=== PATIENT | female | born 1950 | race Caucasian/White ===

== ENCOUNTER 2020-03-20 11:23 | Outpatient (REF) | payer MEDICARE, SELFPAY ==
--- NOTE | 2020-03-20 | MM_ITS ---
EXAMINATION: MM DIAGNOSTIC DIGITAL BREAST TOMOSYNTHESIS, RIGHT US DIAGNOSTIC ULTRASOUND BREAST, RIGHT CLINICAL INFORMATION: Intermittent pea-sized nodule noted by patient posterior 12:00 right breast. The lifetime risk of breast cancer based on the Tyrer-Cuzick Model is 5%. COMPARISON: Mammography: 11/30/2019, 07/29/2018, 07/22/2017 TECHNIQUE: Digital breast tomosynthesis is performed in both the craniocaudal and mediolateral oblique views along with computer-aided detection (CAD). Synthesized 2D images are generated from the tomosynthesis. Ultrasound right breast is targeted to the area of clinical concern posterior 12:00 right breast. Patient is able to point to the area of concern at time of imaging. Grayscale imaging and color Doppler are performed without and with harmonics. FINDINGS: There are scattered areas of fibroglandular density (ACR BI-RADS breast composition Category b). Parenchymal pattern is similar to prior studies. There is no interval mass or architectural abnormality or developing density. There is no mammographic finding at site of clinically palpable concern, noted with symptom marker. There are no abnormal calcifications. The skin contours are smooth. Ultrasound demonstrates no cystic or solid mass, architectural abnormality, or focal duct ectasia. No skin thickening or edema tracking in soft tissue planes. Results are discussed with the patient at time of visit. Patient should be managed based on the clinical impression. If clinically indicated, further evaluation may be considered with surgical consult. Decision to proceed with biopsy should be based on clinical grounds and degree of clinical concern. MM/MM tomosynthesis diagnostic RT IMPRESSION: 1. Mammography shows no significant changes from prior studies. 2. Unremarkable targeted right breast ultrasound. ASSESSMENT: BI-RADS 1: Negative RECOMMENDATION: 1. Patient should be managed based on the clinical impression. If clinically indicated, further evaluation may be considered with surgical consult. Decision to proceed with biopsy should be based on clinical grounds and degree of clinical concern. 2. Otherwise, routine annual screening mammography. This patient's information was entered into a reminder system with a target due date for their next mammogram.
== END 2020-03-20 11:24 | disposition home or self-care (01) ==
LOC: HO.MAMMO 11:23
PROVIDERS: Visit Provider Internal Medicine
DX: N63.15 Unspecified lump in the right breast, overlapping quadrants (principal)
CPT/HCPCS: 76642; 77061; 77065

== ENCOUNTER → 2020-04-30 11:03 | Outpatient (BNVA) | payer MEDICARE, SELFPAY | PROVIDERS: PCP Internal Medicine; Visit Provider Surgery | DX: N63.10 Unspecified lump in the right breast, unspecified quadrant (principal) | CPT/HCPCS: 99202 ==

== ENCOUNTER 2020-12-05 12:30 | Outpatient (REF) | payer MEDICARE, SELFPAY ==
--- NOTE | ~2020-12-05 | MM_ITS ---
EXAMINATION: MM SCREENING DIGITAL BREAST TOMOSYNTHESIS, BILATERAL CLINICAL INFORMATION: Screening. Asymptomatic. The lifetime risk of breast cancer based on the Tyrer-Cuzick Model is 5%. COMPARISON: Mammography: 03/20/2020, 11/30/2019, 07/29/2018, 07/22/2017 TECHNIQUE: Digital breast tomosynthesis is performed in both the craniocaudal and mediolateral oblique views along with computer-aided detection (CAD). Synthesized 2D images are generated from the tomosynthesis. FINDINGS: There are scattered areas of fibroglandular density (ACR BI-RADS breast composition Category b). There are no significant masses, abnormal calcifications, or other abnormalities. Parenchymal pattern is similar to prior studies. No developing density. The axilla and skin contours are unremarkable. MM/MM tomosynthesis screening BI IMPRESSION: No mammographic evidence of malignancy. ASSESSMENT: BI-RADS 1: Negative RECOMMENDATION: Routine annual mammography screening. This patient's information was entered into a reminder system with a target due date for their next mammogram.
== END 2020-12-05 12:31 | disposition home or self-care (01) ==
LOC: HO.MAMMO 12:30
PROVIDERS: PCP Internal Medicine; Visit Provider Internal Medicine
DX: Z12.31 Encounter for screening mammogram for malignant neoplasm of breast (principal)
CPT/HCPCS: 77063; 77067

== ENCOUNTER 2020-12-27 13:10 | Outpatient (REF) | payer MEDICARE, SELFPAY ==
--- NOTE | ~2020-12-27 | CT_ITS ---
EXAMINATION: CT CHEST SCREENING CLINICAL INFORMATION: Smoking history COMPARISON: Previous chest CT scans most recent December 2019 TECHNIQUE: Multidetector volumetric CT imaging of the chest is performed without contrast using low dose technique. Additional 2D coronal and sagittal reformatted images and axial 3D maximum intensity projection (MIP) images are generated on the CT workstation. This CT examination was performed using dose optimization techniques as appropriate, variously including the following: *Automated exposure control *Adjustment of mA and/or kV according to patient size (this includes techniques or standardized protocols for targeted exams where dose is matched to indication/reason for exam; i.e. extremities or head) *Use of iterative reconstruction technique DLP: 61 mGy-cm FINDINGS: LUNGS: There is biapical pleural and parenchymal scarring that is stable. There is a scarring or chronic subsegmental atelectasis in the lingula and right middle lobe. The lungs are otherwise clear. MEDIASTINUM: Mild coronary artery calcification. The mediastinum is otherwise normal. PLEURA: There is no pleural effusion. No pleural mass or thickening. AXILLA: No lymphadenopathy. UPPER ABDOMEN: The gallbladder has been removed. There is fatty infiltration of the pancreas. OSSEOUS STRUCTURES: There are degenerative changes of the spine. CT/CT lung screening IMPRESSION: Stable chest findings. ASSESSMENT: Lung-RADS category 2: Benign RECOMMENDATION: Annual low-dose chest CT follow-up recommended.
== END 2020-12-27 13:11 | disposition home or self-care (01) ==
LOC: HO.CT 13:10
PROVIDERS: Visit Provider Physician Assistant Medical
DX: Z12.2 Encounter for screening for malignant neoplasm of respiratory organs (principal); F17.210 Nicotine dependence, cigarettes, uncomplicated
CPT/HCPCS: 71271

== ENCOUNTER 2021-12-09 12:52 | Outpatient (REF) | payer MEDICARE, SELFPAY ==
--- NOTE | ~2021-12-09 | MM_ITS ---
EXAMINATION: MM SCREENING DIGITAL BREAST TOMOSYNTHESIS, BILATERAL CLINICAL INFORMATION: Screening. Asymptomatic. The lifetime risk of breast cancer based on the Tyrer-Cuzick Model is 4%. COMPARISON: Mammography: 12/05/2020, 03/20/2020, 11/30/2019, 07/29/2018 TECHNIQUE: Digital breast tomosynthesis is performed in both the craniocaudal and mediolateral oblique views along with computer-aided detection (CAD). Synthesized 2D images are generated from the tomosynthesis. FINDINGS: There are scattered areas of fibroglandular density (ACR BI-RADS breast composition Category b). There are no significant masses, abnormal calcifications, or other abnormalities. There is no developing density or architectural abnormality or significant changes from prior exams. MM/MM tomosynthesis screening BI IMPRESSION: No mammographic evidence of malignancy. ASSESSMENT: BI-RADS 1: Negative RECOMMENDATION: Routine annual mammography screening. This patient's information was entered into a reminder system with a target due date for their next mammogram.
== END 2021-12-09 12:53 | disposition home or self-care (01) ==
LOC: HO.MAMMO 12:52
PROVIDERS: PCP Internal Medicine; Visit Provider Internal Medicine
DX: Z12.31 Encounter for screening mammogram for malignant neoplasm of breast (principal)
CPT/HCPCS: 77063; 77067

== ENCOUNTER 2022-02-18 09:36 | Outpatient (REF) | payer MEDICARE, SELFPAY ==
--- NOTE | ~2022-02-18 | CT_ITS ---
EXAMINATION: CT CHEST SCREENING CLINICAL INFORMATION: History of nicotine dependence. COMPARISON: CT chest 12/27/2020. TECHNIQUE: Multidetector volumetric CT imaging of the chest is performed without contrast using low dose technique. Additional 2D coronal and sagittal reformatted images and axial 3D maximum intensity projection (MIP) images are generated on the CT workstation. This CT examination was performed using dose optimization techniques as appropriate, variously including the following: *Automated exposure control *Adjustment of mA and/or kV according to patient size (this includes techniques or standardized protocols for targeted exams where dose is matched to indication/reason for exam; i.e. extremities or head) *Use of iterative reconstruction technique DLP: 65 mGy-cm. FINDINGS: LUNGS: The lungs are well-expanded with patchy atelectatic changes in the lingula and right middle lobe. No focal nodule, mass or consolidation seen. MEDIASTINUM: Central trachea and bronchi are widely patent. The heart size and great vessels are normal caliber. There is trace coronary artery calcifications present. No pericardial effusion seen. No abnormal-sized mediastinal or hilar lymph nodes seen. CORONARY ARTERY CALCIFICATION: There is trace coronary artery calcification. PLEURA: There is no pleural effusion. No pleural mass or thickening. AXILLA: No lymphadenopathy. UPPER ABDOMEN: Visualized liver, spleen, pancreas and bilateral adrenal glands unremarkable. Gallbladder has been surgically removed. OSSEOUS STRUCTURES: There is exaggerated thoracic kyphosis. No aggressive lytic or sclerotic process seen. There is mild ventral spondylosis mid and lower dorsal spine. CT/CT lung screening IMPRESSION: Scarring as described above. No acute consolidation. No prior nodules mass seen. ASSESSMENT: Lung-RADS category 2: Benign. RECOMMENDATION: Low-dose annual CT chest follow-up.
== END 2022-02-18 09:37 | disposition home or self-care (01) ==
LOC: HO.CT 09:36
PROVIDERS: PCP Internal Medicine; Visit Provider Physician Assistant Medical
DX: Z12.2 Encounter for screening for malignant neoplasm of respiratory organs (principal); Z87.891 Personal history of nicotine dependence
CPT/HCPCS: 71271

== ENCOUNTER 2022-12-23 11:08 | Outpatient (REF) | payer MEDICARE, SELFPAY | END 2022-12-23 11:09 | disposition home or self-care (01) | LOC: HO.MAMMO 11:08 | PROVIDERS: PCP Internal Medicine; Visit Provider Internal Medicine | DX: Z12.31 Encounter for screening mammogram for malignant neoplasm of breast (principal) | CPT/HCPCS: 77063; 77067 ==

== ENCOUNTER → 2022-12-23 11:15 | Outpatient (BNV) | payer MEDICARE, SELFPAY | PROVIDERS: PCP Internal Medicine; Visit Provider Radiology Diagnostic Radiology | DX: Z12.31 Encounter for screening mammogram for malignant neoplasm of breast (principal) | CPT/HCPCS: 77063; 77067 ==

== ENCOUNTER 2023-04-22 10:56 | Outpatient (REF) | payer MEDICARE, SELFPAY ==
--- NOTE | ~2023-04-22 | CT_ITS ---
EXAMINATION: CT CHEST SCREENING CLINICAL INFORMATION: History of nicotine dependence. COMPARISON: CT chest 02/18/2022, 12/27/2020 and multiple prior dating back to 09/13/2017. TECHNIQUE: Multidetector volumetric CT imaging of the chest was performed without contrast using low-dose technique. Additional 2D coronal and sagittal reformatted images and axial 3D maximum intensity projection (MIP) images were generated on the CT workstation. This CT examination was performed using dose optimization techniques as appropriate, variously including the following: *Automated exposure control *Adjustment of mA and/or kV according to patient size (this includes techniques or standardized protocols for targeted exams where dose is matched to indication/reason for exam; i.e. extremities or head) *Use of iterative reconstruction technique DLP: 63 mGy-cm FINDINGS: LUNGS: Biapical pleural parenchymal scarring is unchanged. There is an unchanged 3 mm left upper lobe pulmonary nodule (5:156 compare prior 5:167). This is also unchanged dating back to the oldest 09/13/2017 study (prior 09/13/2017 4:152). No additional focal nodule, mass or consolidation seen. MEDIASTINUM: Unremarkable. No mediastinal or hilar lymphadenopathy. Heart size is normal. There is aortic calcification without evidence of aneurysm. CORONARY ARTERY CALCIFICATION: None visualized on this study. PLEURA: There is no pleural effusion. No pleural mass or thickening. AXILLA: No lymphadenopathy. UPPER ABDOMEN: Visualized liver, spleen, pancreas and bilateral adrenal glands unremarkable. Gallbladder has been surgically removed. OSSEOUS STRUCTURES: Again seen is a mild thoracic kyphosis and degenerative changes in the spine. No aggressive lytic or sclerotic process seen. CT/CT lung screening IMPRESSION: Stable 3 mm left upper lobe pulmonary nodule. ASSESSMENT: Lung-RADS category 2: Benign. RECOMMENDATION: Low-dose annual CT chest follow up.
== END 2023-04-22 10:57 | disposition home or self-care (01) ==
LOC: HO.CT 10:56
PROVIDERS: PCP Internal Medicine; Visit Provider Physician Assistant Medical
DX: Z12.2 Encounter for screening for malignant neoplasm of respiratory organs (principal); Z87.891 Personal history of nicotine dependence
CPT/HCPCS: 71271

== ENCOUNTER 2023-09-22 10:53 | Outpatient (REF) | payer MEDICARE, SELFPAY ==
--- NOTE | ~2023-09-22 | MM_ITS ---
EXAMINATION: BONE DENSITOMETRY CLINICAL INDICATION: Postmenopausal. Estrogen deficiency. COMPARISON: Baseline BD dated 09/10/2015. TECHNIQUE: Using a [employer] DXA System (software version: 13.1) manufactured by [employer], dual-energy x-ray absorptiometry was performed of the lumbar spine and left hip. The images are of good technical quality. Summary results are attached. FINDINGS: LEFT FEMUR, NECK: Current: BMD 0.883 g/cm2, Z-score 0.1, T-score -1.1, osteopenia. Baseline: BMD 0.870 g/cm2. LEFT FEMUR, TOTAL: Current: BMD 0.935 g/cm2, Z-score 0.4, T-score -0.6, normal, 0.9% increase from baseline (<5% change is not significant). Baseline: BMD 0.927 g/cm2. AP SPINE L1-L2 (excluding L3 and L4): The data of L1-L4 has been changed to exclude the L3 and L4 vertebral bodies, because degenerative sclerosis at these levels may cause overestimation of lumbar spine density. Current: BMD 1.163 g/cm2, Z-score 0.8, T-score 0.0, normal, 0.0% change from baseline (<5% change is not significant). Baseline: BMD 1.163 g/cm2. IDENTIFIED RISK FACTORS: Menopause, low calcium intake. HISTORY OF FRACTURE: None listed. MEDICATIONS: Vitamin D. MM/XR DEXA axial skeleton IMPRESSION: 1. DIAGNOSIS: Osteopenia based on the lowest T-score value of -1.1 in the femoral neck applying World Health Organization criteria. 2. 10-YEAR FRACTURE RISK PREDICTION, FRAX: Major osteoporotic fracture (clinical spine, forearm, hip or shoulder) 9.0%. Hip fracture 1.1%. 3. Treatment Recommendations: NOF guidelines recommend consideration for treatment in postmenopausal women and men age 50 and older presenting with the following: -A hip or vertebral (clinical or morphometric) fracture. -T-score less than or equal to -2.5 at the femoral neck or spine after appropriate evaluation to exclude secondary causes. -Low bone mass at the hip or spine and a 10-year fracture probability by FRAX of greater than or equal to 3% for hip fracture or greater than or equal to 20% for major osteoporotic fracture based on the [place] adapted WHO algorithm. 4. Other Recommendations: All treatment decisions require clinical judgment and consideration of individual patient factors, including patient preferences, comorbidities, previous drug use, risk factors not captured in the FRAX model (e.g. frailty, falls, vitamin D deficiency, increased bone turnover, interval significant decline in bone density) and possible under or overestimation of fracture risk by FRAX. Additional medical evaluation for secondary cause of low bone mineral density may be appropriate. FUTURE SCAN RECOMMENDATION: People with diagnosed cases of osteoporosis or at high risk for fracture should have regular bone mineral density tests. For patients eligible for Medicare, routine testing is allowed once every 2 years. The testing frequency can be increased to one year for patients who have rapidly progressing disease, those who are receiving or discontinuing medical therapy to restore bone mass, or have additional risk factors.
== END 2023-09-22 10:54 | disposition home or self-care (01) ==
LOC: HO.MAMMO 10:53
PROVIDERS: PCP Internal Medicine; Visit Provider Internal Medicine
DX: Z13.820 Encounter for screening for osteoporosis (principal); Z78.0 Asymptomatic menopausal state
CPT/HCPCS: 77080

== ENCOUNTER 2023-12-29 10:54 | Outpatient (REF) | payer MEDICARE, SELFPAY ==
--- NOTE | ~2023-12-29 | MM_ITS ---
EXAMINATION: MM SCREENING DIGITAL BREAST TOMOSYNTHESIS, BILATERAL CLINICAL INFORMATION: Screening. Asymptomatic. COMPARISON: Mammography: This study is compared with prior exams dating back to 2019. TECHNIQUE: Digital breast tomosynthesis is performed in both the craniocaudal and mediolateral oblique views along with computer-aided detection (CAD). Synthesized 2D images are generated from the tomosynthesis. FINDINGS: There are scattered areas of fibroglandular density (ACR BI-RADS breast composition Category b). There are no significant masses, abnormal calcifications, or other abnormalities. Few, bilateral benign calcifications are present. MM/MM tomosynthesis screening BI IMPRESSION: No mammographic evidence of malignancy. ASSESSMENT: BI-RADS BI-RADS 2 - Benign Findings RECOMMENDATION: Routine annual mammography screening. 1 year F/U This examination should not preclude the clinical evaluation of a suspicious palpable abnormality. This patient's information was entered into a reminder system with a target due date for their next mammogram. Electronically signed by: Dinora Bey MD 01/25/2024 12:21 PM EDT
== END 2023-12-29 10:55 | disposition home or self-care (01) ==
LOC: HO.MAMMO 10:54
PROVIDERS: PCP Internal Medicine; Visit Provider Internal Medicine
DX: Z12.31 Encounter for screening mammogram for malignant neoplasm of breast (principal)
CPT/HCPCS: 77063; 77067

== ENCOUNTER → 2023-12-29 11:00 | Outpatient (BNV) | payer MEDICARE, SELFPAY | PROVIDERS: PCP Internal Medicine; Visit Provider Radiology Diagnostic Radiology | DX: Z12.31 Encounter for screening mammogram for malignant neoplasm of breast (principal) | CPT/HCPCS: 77063; 77067 ==

== ENCOUNTER 2025-01-05 10:56 | Outpatient (REF) | payer MEDICARE, SELFPAY ==
--- OUTSIDE RECORDS SUMMARY | 2024-06-02 08:00 | XMS_ITS ---
Author Organization [facility] [address] [place] Address [address] [facility] [place] [address] Care Team Providers Care Explosive Operator Supervisor Name Role Phone Morgan Iyer MD Primary Care Provider Olga Krishnamurthy Unavailable [phone] Allergies Allergen (clinical drug ingredient) Drug/Non Drug Allergy documented on EMR Reaction Allergy Type Onset Date Status codeine Codeine rash Drug Allergy Active erythromycin Erythromycin Thrush Drug Allergy A ctive Penicillin rash Drug Allergy Active Shellfish (FN) Shellfish-derived Products nausea and vomiting Drug Allergy Active Substance with sulfonamide structure and antibacterial mechanism of action (substance) Sulfa Antibiotics Thrush, chills, nausea Drug Allergy Active Medications Medication SIG (Take, Route, Frequency, Duration) Notes Start Date End Date Status Omeprazole 20 MG 1 capsule 1/2 to 1 h our before morning meal Orally Once a day Active Metoprolol Succinate 25 MG 1 capsule Ora lly Once a day Active Tylenol 325 MG 1 tablet as needed O rally every 6 hrs Active Spironolactone 25 MG 1 tablet Orally Active Vitamin D3 Active metFORMIN HCl 500 MG 1 tablet with a leslee l Orally Once a day Active Aspirin 81 MG 1 tablet Orally Once a day Active amLODIPine Besylate 10 MG 1 tablet Orall y Once a day Active Losartan Potassium 50 MG 1 tablet Orally Once a day Active Atorvastatin Calcium 10 MG 1 tablet Oral ly Once a day Active Social History Tobacco Use: Social History Observation Description Date Details (start date - stop date) Former Smoker NA - NA Tobacco Control (Standard) Question Answer Notes Tobacco use: Former smoker Additional Findings: Tobacco non-user Current no nsmoker AUDIT-C (Standard) Question Answer Notes Did you have a drink containing alcohol in the p ast year? No Points 0 Interpretation Negative Encounters Encounter [facility] Date [facility] [place] [address] [address] 06/02/2024 Olga Fried Plan Of Treatment Next Appt Details Provider Name:Olga escalona, 03/23/2025 11:15:00 AM, [address] [facility], [place] [address], [place], [address], Progress Notes * Hien BLOOMDOB:1950 (74 yo F)Acc No.[id number]:06/02/2024 Progress Notes Patient: Hien PINK Provider: Yasmine Fried DPM :1950 A ge:74 Y S ex:Female Date:06/02/2024 Address:[address] [place], [place] [id number] Pcp:Morgan Iyer MD Subjective: * Chief Complaints: * * ROS: G eneral/Constitutional: Nausea d enies. V omiting d enies. H rafael Thirst d enies. L oss appetite d enies. C hills d enies. F atigue a dmits.?Fever d enies. N ight Sweats d enies. U nexplained weight loss d enies. U nexplained weight gain d enies. H EENTM: Dentures d enies. D izziness d enies. G lasses/contacts d enies. R etinopathy d enies. B lurred/double vision d enies. T MJ?denies. D ischarge/drainage d enies. I mplants d enies. S ore throat d enies. D ental implants d enies. H jignesh of hearing d enies. D ifficulty chewing/swallowing/speaking d enies. N ose bleeds d enies. S ore mouth d enies. ? R espiratory: On Oxygen d enies. P neumonia/pleurisy d enies.?Bronchitis d enies. E mphysema d enies. C oughing d enies. C ough blood?denies. S hortness of breath a dmits. W heezing d enies. C ardiovascular: Pacemaker d enies. M SUPER[employer] d enies. W PW d enies. C HF d enies. H eart attack d enies. S eptal defect d enies. R apid beat d enies. C hest pain d enies. A trial Fib. d enies. M urmur/Palpitations d enies. G astrointestinal: Hemorrhoids d enies. S tomach/Abdominal pain d enies. D ark blood stool d enies. I rritable bowel d enies. C onstipation a dmits. D iarrhea d enies. H ematology: Swelling d enies. C lots d enies. V aricose Veins d enies. B ruising d enies. B leeding problem d enies. G enitourinary: Blood urine d enies. F requent/Painfu/urination/bladder control d enies. K idney stones d enies. I nfection (UTI) d enies. N ephropathy d enies. s ex trans dis (STD) d enies. P rostate d enies. M usculoskeletal: Hammertoes a dmits. B unions a dmits. B ack Pain d enies. M uscle Cramps/ Resting d enies. M uscle cramps / walking d enies.?Generalized aches and pains a dmits. W eakness d enies. I nteg.: Carranza d enies. S cars d enies. C orns/calluses?admits. I ngrown nails d enies. P ainful nails a dmits. O pen Sores d enies. R ashes d enies. N eurologic: Difficulty sleeping d enies. B rain disorder d enies. N umbness d enies. B alance trouble d enies. C onfusion d enies. F ainting/blackouts d enies. T ingling d enies. T remors d enies. * Medical History: A nemia, Osteoarthritis, Back,Hip,and Knee pain, Chicken pox, Covid-19, Diabetes mellitus, Diverticulosis, Gall bladder problems, 2 Leaky Heart valves, High Blood Pressure, Measles, Mumps. * Surgical History: G all bladder removal 2008. * Family History: M other: , diagnosed with Other malignant neoplasm of unspecified site, Diabetic - NIDDM, Unspecified essential hypertension. F ather: , diagnosed with Diabetic - NIDDM, Unspecified essential hypertension. D aughter(s): diagnosed with Diabetic - NIDDM. M aternal aunt: diagnosed with Diabetic - NIDDM. M aternal uncle: diagnosed with Diabetic - NIDDM. * Social History: T obacco Use: T obacco Control (Standard) T obacco use: F ormer smoker A dditional Findings: Tobacco non-user C urrent nonsmoker D rugs/Alcohol: D rugs H ave you used drugs other than those for medical reasons in the past 12 months? N o M iscellaneous: C affeine: yes, frequency:, 3-5 cups per day. Children: yes, 1. Marital status: single. Occupation: Retired. D rug/Alcohol: A JOVANA-C (Standard) D id you have a drink containing alcohol in the past year? N o P oints 0 I nterpretation N egative * Medications: T aking amLODIPine Besylate 10 MG Tablet 1 tablet Orally Once a day , Taking Aspirin 81 MG Tablet Delayed Release 1 tablet Orally Once a day , Taking Atorvastatin Calcium 10 MG Tablet 1 tablet Orally Once a day , Taking Losartan Potassium 50 MG Tablet 1 tablet Orally Once a day , Taking metFORMIN HCl 500 MG Tablet 1 tablet with a meal Orally Once a day , Taking Metoprolol Succinate 25 MG Capsule ER 24 Hour Sprinkle 1 capsule Orally Once a day , Taking Omeprazole 20 MG Capsule Delayed Release 1 capsule 1/2 to 1 hour before morning meal Orally Once a day , Taking Spironolactone 25 MG Tablet 1 tablet Orally , Taking Tylenol 325 MG Tablet 1 tablet as needed Orally every 6 hrs , Taking Vitamin D3 * Allergies: P enicillin: rash, Erythromycin: Thrush, Sulfa Antibiotics: Thrush, chills, nausea, Codeine: rash, Shellfish-derived Products: nausea and vomiting. Objective: * Vitals: Assessment: Plan: * Treatment: * Images: * The named appointment provid er may or may not be the originator of this progress note, and it is not deemed complete until electronically signed by the appointment provider. Sign off status: Pending * Provider: Yasmine Fried DPM Date: 0 06/02/2024 Generated for Jory griffith/Minna/Brent on: 0 01/05/2025 11:35 AM EDT
--- OUTSIDE RECORDS SUMMARY | 2024-10-17 05:30 | XMS_ITS ---
Author Organization [facility] Address [address] [place] [address] Care Team Providers Care Editor Managing Director Name Role Phone Jaylon HERBERT, Morgan Primary Care Provider Olga Krishnamurthy [phone] REASON FOR VISIT Seen Sooner Encounters Encounter Location Date Provider Diagnosis [address] [phone] 10/17/2024 Olga Fried Plan Of Treatment Next Appt Details Provider Name:Olga escalona, 03/23/2025 11:15:00 AM, [address] [address], [place], [address], Progress Notes * Hien BLOOMDOB:1950 (74 yo F)Acc No.[id number]:10/17/2024 Progress Notes Patient: Hien PINK Provider: Yasmine Fried DPM :1950 A ge:74 Y S ex:Female Date:10/17/2024 Address:[address] [place] [id number] Pcp:Morgan Iyer MD Subjective: * Chief Complaints: * 1 . Seen Sooner. * Medical History: Objective: * Vitals: Assessment: Plan: * Treatment: * Images: * The named appointment provid er may or may not be the originator of this progress note, and it is not deemed complete until electronically signed by the appointment provider. Sign off status: Pending * Provider: Yasmine Fried DPM Date: 0 10/17/2024 Generated for Jory griffith/Minna/Araitting on: 0 01/05/2025 11:36 AM EDT
--- NOTE | ~2025-01-05 | MM_ITS ---
EXAMINATION: MM SCREENING DIGITAL BREAST TOMOSYNTHESIS, BILATERAL CLINICAL INFORMATION: Screening. Asymptomatic. COMPARISON: Mammography: Comparison is made with available priors TECHNIQUE: Digital breast mammography with tomosynthesis is performed in both the craniocaudal and mediolateral oblique views along with computer-aided detection (CAD). FINDINGS: There are scattered areas of fibroglandular density (ACR BI-RADS breast composition Category b). There are no significant masses, abnormal calcifications, or other abnormalities. MM/MM tomosynthesis screening BI IMPRESSION: No mammographic evidence of malignancy. ASSESSMENT: BI-RADS BI-RADS 1 - Negative RECOMMENDATION: Routine annual mammography screening. 1 year F/U This examination should not preclude the clinical evaluation of a suspicious palpable abnormality. This patient's information was entered into a reminder system with a target due date for their next mammogram. Electronically signed by: Hina Colvin DO 01/09/2025 10:31 AM EDT
--- OUTSIDE RECORDS SUMMARY | 2025-01-05 11:36 | XMS_ITS | Encounter Summary ---
Author Organization [facility] Address [address] [place] [address] Phone Care Team Providers Care Maintenance Coordinator Name Role Phone Morgan Iyer MD Unavailable [phone] Desilets, Warren Malik MD Unavailable [phone] Ta Parks MD Unavailable [phone] Morgan Iyer MD Primary Care Provider [phone] Mireya Turner MD Unavailable [phone] Encounter Details Date Type Department Care Team (Late st Contact Info) Description 08/17/2024 Procedure Pass [facility], Ct Scan - [address] [address] Social History Tobacco Use Types Packs/Day Years Used Date Smoking Tobacco: Former Cigarettes 1 43.7 1 966 - 01/08/2009 Smokeless Tobacco: Never Alcohol Use Standard Drinks/Week Comments No 0 (1 standard drink = 0.6 oz pur e alcohol) Child or Family Care Answer Date Record ed Do you have problems with on e of the following making it difficult for you to work, study, or receive health care? No 09/16/2022 Education Answer Date Recorded Are you interested in more education? Not on mirtha e 09/03/2022 Are you concerned about learning? Not on file 09/03/2022 No 09/03/2022 No 09/03/2022 Food Answer Date Recorded Within the past 6 months we worried whether our food would run out before we got money to buy more. Never True 09/16/2022 Within the past 6 months the food we bought just didn't last and we didn't have enough money to get more. Never True Residential Stability Answer Date Recor ded What is your housing situation today? I have nubia sing 09/16/2022 How many times have you move d in the past 12 months? Zero (I did not move) 09/16/2022 Paying for Meds Answer Date Recorded Do you have trouble paying for medicines? No 09/16/2022 Paying Utility Bills Answer Date Record ed Do you have trouble paying your heating or elect ricity bill? No 09/16/2022 Transportation Answer Date Recorded Has the lack of transportati on kept you from medical appointments or from getting medications? No 09/16/2022 Digital Access Answer Date Recorded Yes 09/16/2022 No 09/16/2022 Do you have reliable internet access at home? No 09/16/2022 Do you have a device (e.g., phone, tablet, computer) with a working camera? No 09/16/2022 Intimate Partner Violence Answer Date R ecorded Denied Basic Needs Not on file 08/19/2023 In the past 12 months have y ou been in a relationship with a person who hurts, threatens, or tries to control you? No 08/19/2023 Worried food would run out Not on file 08/18 In the past 12 months have y ou been in a relationship with a person who hurts, threatens, or tries to control you? No 08/19/2023 Comments No Sex and Gender Information Value Date Recorded Sex Assigned at Not on file Legal Sex Female 10:00 PM EDT Gender Identity Not on file Sexual Orientation Not on file documented as of this encounter Plan of Treatment Upcoming Encounters Date Type Department Care Team (Late st Contact Info) Description 09/12/2024 Procedure Pass [facility] [address] [place] [address] 12/18/2024 Procedure Pass [facility] [address] [place] [address] 01/11/2025 4:30 PM EDT Appointment [facility] [address] [place] [address] Morgan Iyer MD [address] [place] [address] 03/16/2025 1:00 PM EST Office Visit [facility] Medical [facility] Internal Medicine [address] [place] [address] Morgan Iyer MD [address] [place] [address] 06/04/2025 1:30 PM EST Appointment Echo Lab [address] [place] [address] Jamee Noriega DNP [address] [place] [address] 06/25/2025 11:40 AM EST Office Visit [facility] [address] [place] [address] 3rd Floor, [address] [address] Riley Mcghee MD [address] [place] [address] documented as of this encounter Visit Diagnoses Not on filedocumented in this encounter Additional Health Concerns Assessment Noted Time PHQ-2 Depression Total Score: 0 08/19/19 9:57 AM EDT documented as of this encounter Care Teams Maintenance Coordinator Relationship Specialty Start Date End Date Morgan Iyer MD [address] [place] [address] PCP - General Internal Medicine 03/29/20 Morgan Iyer MD [address] [place] [address] Insurance Assigned Provider 4/6/24 DesiletsWarren MD [address] [facility] [place] [address] Gastroenterology 05/24/19 Ta Parks MD [address] [phone] Gastroenterology 11/28/19 Mireya Turner MD [address] [place] [address] General Surgery 03/29/20 documented as of this encounter Additional Source Comments The information contained in this document represents components of the legal health record. It is not the complete legal health record.[facility]
--- OUTSIDE RECORDS SUMMARY | 2025-01-05 11:36 | XMS_ITS | Encounter Summary ---
Author Organization [facility] Address [address] [place] [address] Phone Care Team Providers Care Tafe Registrar Name Role Phone Morgan Iyer MD Unavailable [phone] Desilets, Warren Malik MD Unavailable [phone] Ta Parks MD Unavailable [phone] Morgan Iyer MD Primary Care Provider [phone] Mireya Turnre MD Unavailable [phone] Encounter Details Date Type Department Care Team (Late st Contact Info) Description 09/02/2022 Procedure Pass [facility] [address] [place] [address] Social History Tobacco Use Types Packs/Day Years Used Date Smoking Tobacco: Former Cigarettes 1 40 0 01/08/1969 - 01/08/2009 Smokeless Tobacco: Never Alcohol Use Standard Drinks/Week Comments No 0 (1 standard drink = 0.6 oz pur e alcohol) Education Answer Date Recorded Are you interested in more education? Not on mirtha e 09/03/2022 Are you concerned about learning? Not on file 09/03/2022 No 09/03/2022 No 09/03/2022 Comments No Sex and Gender Information Value Date Recorded Sex Assigned at Not on file Legal Sex Female 10:00 PM EDT Gender Identity Not on file Sexual Orientation Not on file documented as of this encounter Plan of Treatment Upcoming Encounters Date Type Department Care Team (Late Contact Info) Description 09/12/2024 Procedure Pass [facility], Ct Scan - [facility] [address] [place] [address] 12/18/2024 Procedure Pass [facility] [address] [place] [address] 01/11/2025 4:30 PM EDT Appointment [facility], Ct Scan - [facility] 30 [place] [address] Morgan Iyer MD 40 [place] [address] 03/16/2025 1:00 PM EST Office Visit [facility] Internal Medicine 40 [place] [address] Morgan Iyer MD 40 [place] [address] 06/04/2025 1:30 PM EST Appointment Echo Lab [address] [place] [address] Jamee Noriega DNP [address] [place] [address], [address] [address] 06/25/2025 11:40 AM EST Office Visit [facility] [address] [place] [address] 3rd Floor, [address] [place] [address] Riley Mcghee MD [address] [place] [address], [address] [address] documented as of this encounter Visit Diagnoses Not on filedocumented in this encounter Additional Health Concerns Infection Onset Date Last Indicated Resolved Time COVID-19 06/28/2023 06/28/2023 07/19/2023 1:24 AM EDT CoV-Risk 06/01/2024 06/01/2024 06/01/2024 11:5 5 AM EST COVID-19 06/01/2024 06/01/2024 06/22/2024 1:23 AM EST Assessment Noted Time PHQ-2 Depression Total Score: 0 07/29/19 23 10:58 AM EDT documented as of this encounter Care Teams Tafe Registrar Relationship Specialty Start Date End Date Morgan Iyer MD [address] [place] [address] PCP - General Internal Medicine 03/29/20 Morgan Iyer MD [address] [place] [address] Insurance Assigned Provider 08/14/23 Desilets, Warren Malik MD [address] [place] [address] [place] [address] Gastroenterology 05/24/19 Ta Parks MD [address] [place] [phone] Gastroenterology 11/28/19 Mireya Turner MD [address] [place] [address] General Surgery 03/29/20 documented as of this encounter Additional Source Comments The information contained in this document represents components of the legal health record. It is not the complete legal health record.[facility]
--- OUTSIDE RECORDS SUMMARY | 2025-01-05 11:36 | XMS_ITS | Encounter Summary ---
Author Organization [facility] Address [address] [place] [address] Phone Care Team Providers Care Engraver Name Role Phone Morgan Iyer MD Unavailable [phone] DesiletsWarren MD Unavailable [phone] Ta Parks MD Unavailable [phone] Morgan Iyer MD Primary Care Provider [phone] Mireya Turner MD Unavailable [phone] Reason for Referral * MRI/CAT Scan - Closed Specialty Diagnoses / Procedures Referred By Contac t Referred To Contact Radiology Diagnoses Other chest pain Procedures NC Myocardial Perfusion Pharmacologic Stress Multiple NC Myocardial Perfusion Exercise Multiple Walter Broderick MD Phone: tel: fax: [email or web address] Referral ID Status Reason Start Date Expiration Date Visits Re quested Visits Authorized [id number] Closed 09/02/2022 1 1 Encounter Details Date Type Department Care Team (Latest Contact Info) Description 09/21/2022 Ancillary Orders [facility] [address] [facility] 3rd Floor, [address] [place], [place] [id number] Walter Broderick MD [address] [facility], [address] [place] [address] [email or web address] Other chest pain Social History Tobacco Use Types Packs/Day Years [...] computer) with a working camera? No 09/16/2022 Comments No Sex and Gender Information Value Date Recorded Sex Assigned at Not on file Legal Sex Female 10:00 PM EDT Gender Identity Not on file Sexual Orientation Not on file documented as of this encounter Plan of Treatment Upcoming Encounters Date Type Department Care Team (Late st Contact Info) Description 09/12/2024 Procedure Pass [facility], Ct Scan - [address] [address] 12/18/2024 Procedure Pass [facility] [address] [place] [address] 01/11/2025 4:30 PM EDT Appointment [facility], Ct Scan - [facility] 30 [place] [address] Morgan Iyer MD 40 [place] [address] 03/16/2025 1:00 PM EST Office Visit [facility] Internal Medicine 40 [place] [address] Morgan Iyer MD 40 [place] [address] 06/04/2025 1:30 PM EST Appointment Echo [facility] [address] [place] [address] Jamee Noriega DNP [address] [place] [address], [address] [address] 06/25/2025 11:40 AM EST Office Visit [facility] [address] [place] [address] 3rd Floor, [address] [place] [address] Riley Mcghee MD [address] [place] [address], [address] [address] documented as of this encounter Results * NC Myocardial Perfusion Pharmacologic Stress Multiple (09/21/2022 1:32 PM EDT) Nuc Stress EF 73 % LV Systolic Volume 23 mL LV Diastolic Volume 83 mL EF 73 % LV Systolic Volume Index 27 mL/m2 LV Diastolic Volume Index 99 mL/m2 Anatomical Region Laterality Modality Heart, Vascular Ultrasound Narrative 09/21/2022 3:52 PM EDT Myocardial perfusion stress test imaging report- normal No significant myocardial perfusion defects were seen at stress and at rest images Normal left ventricular systolic function. LV EF is 73% Conclusion; No ischemia or infarction seen Normal left ventricular systolic function. Nuclear Study Quality TYPE OF STUDY: Myocardial Perfusion Imaging after Regadenoson protocol with gated SPECT. PROTOCOL USED: One day Regadenoson rest-stress protocol in the supine position. Images were obtained in gated tomographic technique. Images were processed in SPECT format, reconstructed tomographically and compared [id number] in short axis, horizontal long axis and vertical long axis. DOSE: Technetium 99m Sestamibi 7.5 mCi injected intravenously in the right arm antecubital vein at rest on 09/21/2022 with post injection scan time of 60 minutes. Technetium 99m Sestamibi 21.9 mCi injected intravenously in the right arm antecubital vein during stress after Regadenoson injection on 09/21/2022 with post injection scan time of 40 minutes. Overall image quality is good. Study was gated successfully. The lung to heart ratio is 0.32 Response to Stress REPORT: PETE PROTOCOL CONVERTED TO A SITTING REGADENOSON STUDY WEIGHT: 197 lb BMI: 32.70 The Stress test was initially attempted using a PETE protocol; after approximately 1 minute of exercise patient requested termination of exercise due to leg pain. Test was then converted to a sitting pharmacologic protocol. Hien Waldrop received 0.4 mg of Regadenoson (lexiscan) while sitting on a chair. Regadenoson was given IV push over 10 seconds as per protocol immediately followed by injection of Tc99m Sestamibi by Vel Holland, the nuclear process engineer. 1. EKG - Baseline EKG showed sinus rhythm with non-specific ST/T wave abnormalities. After injection of Lexiscan, there were no ischemic EKG changes. 2. SYMPTOMS - Patient reported mild shortness of breath after injection of Lexiscan which resolved 2-3 minutes into the recovery period. 3. PHYSIOLOGY - Resting heart rate was 85 bpm. After Lexiscan injection, heart rate 136 bpm (91% MPHR). 4. ARRHYTHMIAS - Frequent PACs, rare PVCs. Conclusion - No EKG evidence of ischemia or symptoms concerning for angina. Nuclear images pending and will be reported separately. See attached stress report for full details. Sharri Schultz NP. Perfusion Comments Stress LV cavity volume was 55 mL. Resting LV cavity volume was 49 mL. The stress/rest perfusion ratio is 1.12. There is no evidence of transient ischemic dilation (TID). The TID ratio was 1.1. Stress Function Comments Left ventricular function post-stress was normal. Post-stress ejection fraction was 73%. Stress end diastolic index: 99 mL/m2. Stress end systolic index: 27 mL/m2. Nuclear Prior Study There is no prior study available for comparison. Rest Function Comments Left ventricular function at rest was normal. Resting ejection fraction was 73%. Rest end diastolic index: 83 mL. Rest end systolic index: 23 mL. Perfusion Scoring Stress Summed Score: 0 Percent Normal: 0.00% The left ventricular perfusion is normal. Perfusion Scoring Resting Summed Score: 0 Percent Normal: 0.00% The left ventricular perfusion is normal. Procedure Note Walter Broderick MD - 09/21/2022 Myocardial perfusion stress test imaging report- normal No significant myocardial perfusion defects were seen at stress and atrest images Normal left ventricular systolic function. LV EF is 73% Conclusion; No ischemia or infarction seen Normal left ventricular systolic function. us Walter Broderick MD CV NM CARDIAC Final Re sult documented in this encounter Visit Diagnoses Diagnosis Other chest pain- Primary Other chest pain documented in this encounter Additional Health Concerns Infection Onset Date Last Indicated Resolved Time COVID-19 06/28/2023 06/28/2023 07/19/2023 1:24 AM EDT CoV-Risk 06/01/2024 06/01/2024 06/01/2024 11:5 5 AM EST COVID-19 06/01/2024 06/01/2024 06/22/2024 1:23 AM EST Assessment Noted Time PHQ-2 Depression Total Score: 0 07/29/19 10:58 AM EDT documented as of this encounter Care Teams Engraver Relationship Specialty Start Date End Date Morgan Iyer MD [address] [place] [address] PCP - General Internal Medicine 03/29/20 Morgan Iyer MD [address] [place] [address] [email or web address] Insurance Assigned Provider 08/14/23 Desilets, Warren Malik MD [address] [place] [address] [place] [address] Gastroenterology 05/24/19 Ta Parks MD [address] [place] [phone] Gastroenterology 11/28/19 Mireya Turner MD [address] [place] [address] General Surgery 03/29/20 documented as of this encounter Additional Source Comments The information contained in this document represents components of the legal health record. It is not the complete legal health record.[facility]
--- OUTSIDE RECORDS SUMMARY | 2025-01-05 11:36 | XMS_ITS | Encounter Summary ---
Author Organization [facility] Address [address] [place] [address] Phone Care Team Providers Care Revenue Liaison Name Role Phone Morgan Iyer MD Unavailable [phone] Desilets, Warren Malik MD Unavailable [phone] Ta Parks MD Unavailable [phone] Morgan Iyer MD Primary Care Provider [phone] Mireya Turner MD Unavailable [phone] Encounter Details Date Type Department Care Team (Late st Contact Info) Description 09/04/2024 Ancillary Orders [facility],Outside Imaging [address] [place] [address] System, Provider Not In, [place] [address] Social History Tobacco Use Types Packs/Day Years [...] st Contact Info) Description 09/12/2024 Procedure Pass [address] [address] 12/18/2024 Procedure Pass [facility] [address] [place] [address] 01/11/2025 4:30 PM EDT Appointment [address] [address] Morgan Iyer MD 40 [place] [address] 03/16/2025 1:00 PM EST Office Visit [facility] Internal Medicine 40 [place] [address] Morgan Iyer MD 40 [place] [address] 06/04/2025 1:30 PM EST Appointment Echo Lab [address] [place] [address] Jamee Noriega DNP [address] [place] [address], [address] [address] [email or web address] 06/25/2025 11:40 AM EST Office Visit [facility] [address] [place] [address] Dr 3rd Floor, [address] [place] [address] Riley Mcghee MD [address] [place] [address], [address] [address] [email or web address] documented as of this encounter Results * CT Chest Outside (No Interpretation) (04/22/2023 12:00 AM EST) Narrative SYSTEMGENERATED, DOCUMENTATION - 09/04/2024 2:36 PM EDT This study is for PACS storage only and not for interpretation. us Provider Not In System PhD IMG OUTSIDE IMAGING W /OUT INTERPRETATION Final Result documented in this encounter Visit Diagnoses Not on filedocumented in this encounter Additional Health Concerns Assessment Noted Time PHQ-2 Depression Total Score: 0 08/19/19 24 9:57 AM EDT documented as of this encounter Care Teams Revenue Liaison Relationship Specialty Start Date End Date Morgan Iyer MD 40 [place] [address] [email or web address] PCP - General Internal Medicine 03/29/20 Morgan Iyer MD [address] [place] [address] [email or web address] Insurance Assigned Provider 08/14/23 Desilets, Warren Malik MD [address] [place] [address] [place] [address] Gastroenterology 05/24/19 Ta Parks MD [address] [place] [phone] Gastroenterology 11/28/19 Mireya Turner MD [address] [place] [address] General Surgery 03/29/20 documented as of this encounter Additional Source Comments The information contained in this document represents components of the legal health record. It is not the complete legal health record.[facility]
--- OUTSIDE RECORDS SUMMARY | 2025-01-05 11:36 | XMS_ITS | Clinical Summary ---
Author Organization [facility] Address [address] [place] [address] Phone Care Team Providers Care Associate Publisher Name Role Phone Morgan Iyer MD Unavailable [phone] Desilets, Warren Malik MD Unavailable [phone] WinaoTa moran MD Unavailable [phone] Morgan Iyer MD Primary Care Provider [phone] Mireya Turner MD Unavailable [phone] Allergies Active Allergy Reactions Criticality Noted Date Comments Amoxicillin-Pot Clavulanate 08/07/2021 Atorvastatin Joint Pain Low 10/29/2023 Codeine 08/07/2021 Erythromycin GI Upset 08/17/2017 ? reaction Nabumetone GI Upset 08/31/2017 With daily bid dosing Scallops Diarrhea,Nausea and/or Vomiting 12/17/2020 Sulfa (Sulfonamide Antibiotics) Nausea and/or Vomiting 08/17/2017 Clemastine Low 07/27/2023 Tachycardia Medications cholecalciferol, vitamin D3, 1,000 unit capsule Take 1 capsule by mouth daily. Active acetaminophen (TYLENOL) 325 mg tablet Take 650 mg by mouth every 6 (six) hours. Active aspirin 81 MG EC tablet One tablet 2 x a week 30 tablet 3 08/19/19 24 Active amLODIPine (NORVASC) 10 MG tabletIndication s:Essential hypertension take 1 tablet by mouth every day 90 tablet 3 02/08/20 24 Active losartan (COZAAR) 50 MG tabletIndication s:Essential hypertension take 1 tablet by mouth twice a day 180 tablet 3 02/23/20 24 Active metoprolol succinate (TOPROL-XL) 25 MG 24 hr tabletIndication s:Medication refill TAKE 1 TABLET (25 MG TOTAL) BY MOUTH DAILY. 90 tablet 3 08/12/19 25 Active spironolactone (ALDACTONE) 25 MG tabletIndication s:Essential hypertension TAKE 1 TABLET (25 MG TOTAL) BY MOUTH DAILY. 90 tablet 3 09/27/19 25 Active metFORMIN (GLUCOPHAGE-XR) 500 MG 24 hr tabletIndication s:Type 2 diabetes mellitus without complication, without long-term current use of insulin TAKE 1 TABLET BY MOUTH TWICE A DAY 180 tablet 3 11/08/19 25 Active omeprazole (PRILOSEC) 20 MG capsuleIndicatio ns:Gastroesophag eal reflux disease without esophagitis TAKE 1 CAPSULE BY MOUTH EVERY DAY NEEDED 90 capsule 3 12/12/19 25 Active omeprazole (PRILOSEC) 20 MG capsuleIndicatio ns:Gastroesophag eal reflux disease without esophagitis TAKE 1 CAPSULE BY MOUTH DAILY NEEDED. 90 capsule 3 07/05/19 24 025 Discontinued Active Problems Problem Noted Date Diagnosed Date Malaise and fatigue 12/18/2024 Assessment & Plan (12/18/2024 2:02 PM EDT): Pt reports fatigue with activity. She attributes this with her significant arthritis. She felt as if she felt less fatigue when she was on a medication that helped her arthritis. Will repeat her Echo to rule out structural heart disease. Plan: Echo prior 6 month appt Follow-up in [address] Mcghee Dyspnea on exertion 12/18/2024 Assessment & Plan (12/18/2024 2:02 PM EDT): See fatigue A&P for management. Repeat Echo prior to next visit. COVID 06/01/2024 Assessment & Plan (06/01/2024 11:57 AM EST): Patient noted to have 1 week of runny nose, sneezing, and pressure in her cheekbones. No other respiratory or sinus symptoms. On exam no tenderness to palpation over her sinuses. Tympanic membranes without infection, no lymphadenopathy. Lungs clear to auscultation bilaterally. Discussed with the patient that this is likely viral versus allergies, discussed symptomatic treatment including Claritin/Zyrtec and Flonase. Discussed that we do not get concerned about bacterial sinusitis until she reaches the 2-week oxana and has associated symptoms such as fever. [id number] flu/COVID/RSV obtained in the office, positive for COVID. Patient was extremely insistent about getting a Z-Matty for her symptoms. I discussed with the patient that I do not think that a Z-Matty is appropriate for the symptoms that she is experiencing. I had originally prescribed it to please her, however after her testing positive for COVID I did discontinue it. Osteopenia 11/18/2023 Overview (11/18/2023): Dexa done 09/22/23 osteopenia Other chest pain 09/02/2022 Assessment & Plan (09/02/2022 4:50 PM EDT): Patient gives history of chest pain which is pretty impressive she has multiple risk factors for coronary artery disease including diabetes hypertension and hyperlipidemia. Because of her diabetes and high risk status we will proceed to a myocardial perfusion stress testing. We will also start her on a beta-trudy keep her on baby aspirin. APC (atrial premature contractions) 09/02/2022 Type 2 diabetes mellitus wit hout complication, without long-term current use of insulin 08/20/2020 Anemia 08/17/2017 Chronic bilateral thoracic back pain 08/17/2017 Essential hypertension 08/17/2017 Assessment & Plan (12/18/2024 2:00 PM EDT): BP is under good control today. She is on amlodipine, losartan, metoprolol, and spironolactone. Will continue current management. Her blood pressure has been good at home. Plan: Continue amlodipine Continue losartan Continue metoprolol Continue spironolactone Follow-up in 6 months Assessment & Plan (09/02/2022 4:51 PM EDT): Blood pressure 160/68 we will start her on metoprolol 25 mg daily she will continue amlodipine and losartan to check her echocardiogram for LVH Gastroesophageal reflux disease 08/17/2017 Primary osteoarthritis involving multiple joints 08/17/2017 Vitamin D deficiency 08/17/2017 Palpitations Assessment & Plan (12/18/2024 2:00 PM EDT): Hx of PVC's. Managed on metoprolol. She notes that the frequency has improved. No changes in management. Plan: Continue metoprolol Encounters Date Type Department Care Team Description 12/18/2024 1:30 PM EDT Office Visit [facility] [address], [address] [place] [address] Jamee Noriega DNP Malaise and fatigue (Primary Dx); Dyspnea on exertion; Essential hypertension; Palpitations 12/08/2024 Refill [facility] [address] [place] [address] Morgan Iyer MD Medication Refill 11/23/2024 Orders Only [facility] [address] [place] [address] Yamilka Daniel MD 11/07/2024 Refill [facility] [address] [place] [address] Morgan Iyer MD Medication Refill from Last 3 Months Immunizations Immunization Administration Dates Next Due COVID-19 (Pre-03/01) Moderna Vaccine, mRNA, PF 0 11/28/2020 Tdap 11/02/2022,04/09/2009 Family History Medical History Relation Comments Heart disease Father Diabetes Maternal Grandmother Hypertension Mother Rectal cancer Mother Diabetes Paternal Grandmother Diabetes Sister Relation Status Comments Father (Age 53) Maternal Grandmother Mother (Age 88) Paternal Grandmother Sister Social History Tobacco Use Types Packs/Day Years Used Date Smoking Tobacco: Former Cigarettes 1 43.7 1 966 - 01/08/2009 Smokeless Tobacco: Never Tobacco Cessation:Counseling Given: Not Answered Alcohol Use Standard Drinks/Week Comments No 0 [...] No 09/16/2022 Digital Access Answer Date Recorded No 09/17/2024 No 09/17/2024 Reliable internet access at home? Not on file 09/17/2024 Device with a working camera? Not on file Intimate Partner Violence Answer Date R ecorded Denied Basic Needs Not on file 09/15/2024 In the past 12 months have y ou been in a relationship with a person who hurts, threatens, or tries to control you? No 09/15/2024 Worried food would run out Not on file 09/15 In the past 12 months have y ou been in a relationship with a person who hurts, threatens, or tries to control you? No 09/15/2024 Comments No Sex and Gender Information Value Date Recorded Sex Assigned at Not on file Legal Sex Female 10:00 PM EDT Gender Identity Not on file Sexual Orientation Not on file Last Filed Vital Signs Vital Sign Reading Time Taken Comments Blood Pressure 130/60 12/18/2024 1:28 PM EDT Pulse 67 12/18/2024 1:28 PM EDT Temperature 36.8 C (98.2 F) 09/15/2024 11:25 AM EDT Respiratory Rate 16 09/15/2024 11:25 AM EDT Oxygen Saturation 98% 12/18/2024 1:28 PM EDT Inhaled Oxygen Concentration - - Weight 93.5 kg (206 lb 3.2 oz) 12/18/2024 1:28 P M EDT Height 164.7 cm (5' 4.84 ) 12/18/2024 1:28 PM ED T Body Mass Index 34.48 12/18/2024 1:28 PM EDT Plan of Treatment Upcoming Encounters Date Type Department Care Team (Late st Contact Info) Description 09/12/2024 Procedure Pass [address] [address] 12/18/2024 Procedure Pass Echo Lab [address] [place] [address] 01/11/2025 4:30 PM EDT Appointment [address] [address] Morgan Iyer MD [address] [place] [address] 03/16/2025 1:00 PM EST Office Visit [facility] [address] [place] [address] Morgan Ieyr MD [address] [place] [address] 06/04/2025 1:30 PM EST Appointment Echo Lab [address] [place] [address] Jamee Noriega DNP [address] [place] [address], [address] [address] 06/25/2025 11:40 AM EST Office Visit [facility] [address] [place] [address] 3rd Floor, [address] [place] [address] Riley Mcghee MD [address] [place] [address], [address] [place] [address] [email or web address] Health Maintenance Due Date Last Done Comments PNEUMOCOCCAL VACCINES (50+ years) (1 of 2 - PCV) 1970 COLOGUARD 1996 FOBT 1996 SIGMOIDOSCOPY 1996 VIRTUAL COLONOSCOPY 1996 ZOSTER VACCINES (1 of 2) 2001 COLONOSCOPY 11/20/2018 11/20/2008 COVID-19 VACCINE ( season) 2024 12/26/2020, 11/28/2020 HEMOGLOBIN A1C 02/10/2025 08/11/2024, 04/09, 08/19/2023, Additional history exists BLOOD PRESSURE 06/20/2025 12/18/2024 COLORECTAL CANCER SCREENING 08/10/2025 FIT TEST 08/10/2025 08/10/2024, 09/0 10/2022, 12/17/2020, Additional history exists CREATININE LEVEL 08/11/2025 08/11/2024, , 08/19/2023, Additional history exists LIPID PANEL 08/11/2025 08/11/2024, 04/09, 08/19/2023, Additional history exists POTASSIUM LEVEL 08/11/2025 08/11/2024, 04/09, 08/19/2023, Additional history exists DEPRESSION SCREENING 09/15/2025 09/15/2024 DIABETIC EYE EXAM 10/05/2025 10/05/2024, , 06/03/2023, Additional history exists RSV VACCINE (1 - 1-dose 75+ series) 2026 MAMMOGRAM 09/15/2026 09/15/2024, 12/09, 12/23/2022, Additional history exists Adult Td,Tdap Booster 11/02/2032 11/02/2022, 009 HEPATITIS C SCREENING Completed 06/23/2019 , 06/23/2019, 06/23/2019 OSTEOPOROSIS SCREENING INITIAL (ONE-TIME) Completed 09/22/2023, 09/10/2015 SMOKING STATUS SCREENING (Once After 26 Yrs) Completed 12/18/2024 HEPATITIS A VACCINES Aged Out No long er eligible based on patient's age to complete this topic HIB VACCINES Aged Out No longer eligi ble based on patient's age to complete this topic MENINGOCOCCAL VACCINES (ACWY) Aged Out No longer eligible based on patient's age to complete this topic MENINGOCOCCAL VACCINES (B) Aged Out N o longer eligible based on patient's age to complete this topic Medical Devices Not on file Procedures Procedure Name Priority Date/Time Associated Diagnosis Comments DIABETES EYE EXAM FOR RESULT ENTRY ONLY Routine 10/05/2024 1:40 PM EDT BI MAMMOGRAM SCREENING (BILATERAL) Routine 09/15/2024 12:38 PM EDT Screening mammogram for breast cancer HEMOGLOBIN A1C Routine 08/11/2024 10:49 AM EDT Type 2 diabetes mellitus without complication, without long-term current use of insulin LIPID PANEL Routine 08/11/2024 10:49 AM EDT Type 2 diabetes mellitus without complication, without long-term current use of insulin COMPREHENSIVE METABOLIC PANEL Routine 08/11/2024 10:49 AM EDT Type 2 diabetes mellitus without complication, without long-term current use of insulin Essential hypertension HC BLOOD OCCULT FECAL HGB DETER IA QUAL FECES 1-3 Routine 08/10/2024 12:00 PM EDT Screen for colon cancer BD DXA SCREENING Routine 09/22/2023 11:5 2 AM EDT Postmenopausal estrogen deficiency HEPATITIS C ANTIBODY, QUALITATIVE Routine 06/23/2019 COLONOSCOPY FOR RESULT ENTRY ONLY Routine 11/20/2008 from Last 3 Months or Most Recently Relevant to Health Maintenance Results * DIABETES EYE EXAM FOR RESULT ENTRY ONLY (10/05/2024 1:40 PM EDT) Historical Provider HEALTH MAINTENANCE Final Result * (ABNORMAL) Comprehensive metabolic panel (08/11/2024 10:49 AM EDT) SODIUM 136 133 - 146 mmol/L [facility] POTASSIUM 4.5 3.3 - 5.1 mmol/L [facility] CHLORIDE 101 96 - 108 mmol/L [facility] CO2 26 21 - 35 mmol/L [facility] BUN 18 6 - 19 mg/dL [facility] CREATININE 0.90 0.5 - 1.5 mg/dL [facility] GLUCOSE 123(H) 70 - 99 mg/dL [facility] ALBUMIN 4.2 3.9 - 4.8 g/dL [facility] TOTAL PROTEIN 7.0 6.5 - 8.0 g/dL [facility] CALCIUM 9.5 8.4 - 10.3 mg/dL [facility] ALKALINE PHOSPHATASE 52 39 - 117 U/L [facility] TOTAL BILIRUBIN 0.7 0.0 - 1.2 mg/dL [facility] AST 19 0 - 37 U/L [facility] ALT 12 0 - 40 U/L [facility] GLOBULIN 2.8 1 - 4.8 g/dL [facility] EGFR 68 >59 mL/min/1.7 3m2 [facility] Comment:Estimated glomerular filtration rate calculated using the CKD-EPI refit equation. ANION GAP 14 10 - 20 mmol/L [facility] Blood 08/11/2024 10:4 9 AM EDT 08/11/2024 10:56 AM EDT Morgan Iyer MD LAB BLOOD ORDERABLES Final Re sult [address] [address] * (ABNORMAL) Hemoglobin A1c (08/11/2024 10:49 AM EDT) HEMOGLOBIN A1C 6.6(H) 4.3 - 5.8 % [facility] Blood 08/11/2024 10:4 9 AM EDT 08/11/2024 10:56 AM EDT us Morgan Iyer MD LAB BLOOD ORDERABLES Final Re sult Performing Organization Address [facility] Co de Phone Number [address] [address] * (ABNORMAL) Lipid panel (08/11/2024 10:49 AM EDT) HDL 57 mg/dL [facility] Comment: Interpretation <40 mg/dL: Low HDL cholesterol (major risk factor for CHD) Greater than or equal to 60 mg/dL: High HDL cholesterol ( negative risk factor for CHD) HDL - cholesterol is affected by a number of factors, e.g. smoking, excerise, hormones, sex and age. CHOLESTEROL 150 0 - 240 mg/dL [facility] TRIGLYCERIDES 65 30 - 160 mg/dL [facility] LDL 80 50 - 129 mg/dL [facility] Comment: LDL levels in terms of risk for coronary heart disease: <100 mg/dL: Optimal 100-129 mg/dL: Near or above optimal 130-159 mg/dL: Borderline high 160-189 mg/dL: High >190 mg/dL: Very High CARDIAC RISK RATIO 2.6(L) 3.3 - 4.4 [facility] Blood 08/11/2024 10:4 9 AM EDT 08/11/2024 10:56 AM EDT us Morgan Iyer MD LAB BLOOD ORDERABLES Final Re sult Performing Organization Address [facility] Co de Phone Number [address] [address] * Fecal immunochemical test x1 (FIT) (08/10/2024 12:00 PM EDT) Immuno Fecal Occult Negative Negative [facility] Stool (Stool) 08/10/2024 12: 00 PM EDT 08/11/2024 10:57 AM EDT Morgan Iyer MD BODY FLUIDS AND STOOLS ORDERA BLES Final Result Performing Organization Address [facility] Co de Phone Number [address] [place] [address] * MAMMOGRAPHY FOR RESULT ENTRY ONLY (12/29/2023 12:28 PM EDT) us Morgan Iyer MD HEALTH MAINTENANCE Edited Res ult - Final * DXA Screening (09/22/2023 11:52 AM EDT) Anatomical Region Laterality Modality Bone Density Bone Density us Morgan Iyer MD IMG BD BONE DENSITY DEXA Edit ed Result - Final * Hepatitis C antibody, qualitative (06/23/2019) us Morgan Iyer MD LAB BLOOD ORDERABLES Edited R esult - Final * COLONOSCOPY FOR RESULT ENTRY ONLY (11/20/2008) Colonoscopy no polyps Yamilka Daniel MD HEALTH MAINTENANCE Final Result from Last 3 Months or Most Recently Relevant to Health Maintenance Insurance MEDICARE PART A & B [employer]MENT MEDICARE PART A & B [employer] SUPP[employer]MENT MEDICARE PART A & B [employer] MEDEX SUPPLEMENT MEDICARE PART A & B [facility] MEDEX SUPPLEMENT MEDICARE PART A & B [employer] MEDEX SUPPLEMENT MEDICARE PART A & B [employer] MED[employer] SUPPLEMENT MEDICARE PART A & B [employer] SUPPLEMENT MEDICARE PART A & B [employer] SUPPLEMENT MEDICARE PART A & B [employer] MEDEX SUPPLEMENT Care Teams Associate Publisher Relationship Specialty Start Date End Date Morgan Iyer MD [address] [place] [address] [email or web address] PCP - General Internal Medicine 03/29/20 Morgan Iyer MD [address] [place] [address] [email or web address] Insurance Assigned Provider 08/14/23 Warren Baum MD [address] [place] [address] [place] [address] Gastroenterology 05/24/19 Ta Parks MD [address] [place] [phone] Gastroenterology 11/28/19 Mireya Turner MD [address] [place] [address] General Surgery 03/29/20 Additional Source Comments The information contained in this document represents components of the legal health record. It is not the complete legal health record.[facility]
--- OUTSIDE RECORDS SUMMARY | 2025-01-05 11:36 | XMS_ITS | Encounter Summary ---
Author Organization [facility] Address [address] [place] [address] Phone Care Team Providers Care Soakers Supervisor Name Role Phone Morgan Iyer MD Unavailable [phone], Warren Malik MD Unavailable [phone] Ta Parks MD Unavailable [phone] Morgan Iyer MD Primary Care Provider [phone] Mireya Turner MD Unavailable [phone] Encounter Details Date Type Department Care Team (Late st Contact Info) Description 07/27/2024 Procedure Pass [facility] [employer] [facility], Ct Scan - [address] [address] Social History Tobacco Use Types Packs/Day Years [...] st Contact Info) Description 09/12/2024 Procedure Pass [facility] [address] [place] [address] 12/18/2024 Procedure Pass [facility] [address] [place] [address] 01/11/2025 4:30 PM EDT Appointment [facility] [address] [place] [address] Morgan Iyer MD [address] [place] [address] 03/16/2025 1:00 PM EST Office Visit [facility] [address] [place] [address] Morgan Iyer MD [address] [place] [address] 06/04/2025 1:30 PM EST Appointment Echo Lab [address] [place] [address] Jamee Noriega DNP [address] [place] [address] 06/25/2025 11:40 AM EST Office Visit [facility] [address] [place] [address] 3rd Floor, [address] [address] Riley Mcghee MD [address] [place] [phone] documented as of this encounter Visit Diagnoses Not on filedocumented in this encounter Additional Health Concerns Assessment Noted Time PHQ-2 Depression Total Score: 0 08/19/19 9:57 AM EDT documented as of this encounter Care Teams Soakers Supervisor Relationship Specialty Start Date End Date Morgan Iyer MD [address] [place] [address] PCP - General Internal Medicine 03/29/20 Morgan Iyer MD [address] [place] [phone] Insurance Assigned Provider 4/6/24 DesiletsWarren MD [address] [facility] [place] [address] Gastroenterology 05/24/19 Ta Parks MD [address] [phone] Gastroenterology 11/28/19 Mireya Turner MD [address] [place] [address] General Surgery 03/29/20 documented as of this encounter Additional Source Comments The information contained in this document represents components of the legal health record. It is not the complete legal health record.[facility]
--- OUTSIDE RECORDS SUMMARY | 2025-01-05 11:36 | XMS_ITS | Patient Health Record ---
Author Organization [facility] Address [address] [place] [address] Care Team Providers Care Head Gauge Unit Operator Name Role Phone Morgan Iyer MD Primary Care Provider Olga Krishnamurthy Unavailable [phone] Allergies Allergen (clinical drug ingredient) Drug/Non Drug Allergy documented on EMR Reaction Allergy Type Onset Date Status Tavist Allergy Unknown Drug Allergy Ac tive codeine Codeine rash Drug Allergy Active erythromycin Erythromycin Thrush Drug Allergy A ctive Penicillin rash Drug Allergy Active Shellfish (FN) Shellfish-derived Products nausea and vomiting Drug Allergy Active Substance with sulfonamide structure and antibacterial mechanism of action (substance) Sulfa Antibiotics Thrush, chills, nausea Drug Allergy Active Results Component Value Reference Range Notes HEMOGLOBIN A1C (GLYCOHEMOGLO BIN) Reviewed date:09/12/2024 01:48:00 PM Interpretation: Performing Lab: Notes/Report: HEMOGLOBIN A1C % (HH) 6.3 Reason For Referral No Information Medications Medication SIG (Take, Route, Frequency, Duration) Notes Start Date End Date Status metFORMIN HCl 500 MG 1 tablet with a leslee l Orally twice a day Active Extra Depth Orthopedic Shoes (1 Pair) with Customized Heat Molded Multidensity Innersoles (3 Pair) Dx: NIDDM/Polyneuropathy (E11.42), Hammertoe Foot Deformity (M20.41,M20.42), Preulcerative Skin Lesion(s) (L85.1); Duration: 365 days 12/15/2024 Active Metoprolol Succinate 25 MG 1 capsule Orally Once a day Active Omeprazole 20 MG 1 capsule 1/2 to 1 h our before morning meal Orally Once a day Active amLODIPine Besylate 10 MG 1 tablet Orall y Once a day Active Aspirin 81 MG 1 tablet Orally Once a day Active Atorvastatin Calcium 10 MG 1 tablet Orally Once a day Not-Taking Losartan Potassium 50 MG 1 tablet Orally twice a day Active Spironolactone 25 MG 1 tablet Orally Active Tylenol 325 MG 1 tablet as needed Orally every 6 hrs Active Vitamin D3 Active Social History Tobacco Use: Social History Observation Description Date Details (start date - stop date) Never Smoker NA - NA Tobacco use other than smoking: Question Answer Notes Are you an other tobacco user? No Tobacco Control (Standard) Question Answer Notes Tobacco use: Nonsmoker Additional Findings: Tobacco non-user Current no nsmoker AUDIT-C (Standard) Question Answer Notes Did you have a drink containing alcohol in the p ast year? No Points 0 Interpretation Negative Problems Problem Type SNOMED Code ICD Code Onset Dates Problem Status W/U Status Risk Notes Problem Acquired hammer toe of right foot (600139471434 9105) Other hammer toe(s) (acquired), right foot (M20.41) Active confirmed Problem Acquired hammer toe of left foot (891939633158 9103) Other hammer toe(s) (acquired), left foot (M20.42) Active confirmed Problem Type 2 diabetes mellitus without complication (E11.9) Active confirmed Vital Signs Heart Rate 64 /min 12/15/2024 Blood pressure diastolic 86 R mm Hg 12/15/2024 Height 5ft 5 in in 12/15/2024 Blood pressure systolic 158 mm Hg 12/15/2024 Weight 207 lbs 12/15/2024 BMI 34.44 kg/m2 12/15/2024 Procedures Procedure Date Ordered Date Performed Result Body Sit e 44606-OIKEOSS NAIL, 6 OR MORE 12/15/2024 N/A Encounters Encounter Location Date Provider Diagnosis [facility] [address] 09/12/2024 Olga Fried Pain in right toe(s) M79.674 ; Onychomycosis B35.1 and Pain in left toe(s) M79.675 [facility] [address] 12/15/2024 Olga Fried Other hammer toe(s) (acquired), right foot M20.41 ; Other hammer toe(s) (acquired), left foot M20.42 ; Pain in right toe(s) M79.674 ; Tinea unguium B35.1 ; Pain in left toe(s) M79.675 and Type 2 diabetes mellitus without complication E11.9 [facility] [place] [address] [place] [address] 07/31/2024 Olga Fried Assessments Encounter Date Diagnosis (ICD Code) Assessment Notes Treatment Notes Treatment Clinical Notes Section Notes 09/12/2024 Pain in right toe(s) (ICD-10 - M79.674) 09/12/2024 Onychomycosis (ICD-10 - B35.1) 12/15/2024 Other hammer toe(s) (acquired), right foot (ICD-10 - M20.41) Patient Educated with: DIABETIC FOOT CARE INSTRUCTIONS.p df (DIABETIC FOOT CARE INSTRUCTIONS.p df) 12/15/2024 Other hammer toe(s) (acquired), left foot (ICD-10 - M20.42) 12/15/2024 Pain in right toe(s) (ICD-10 - M79.674) 09/12/2024 Pain in left toe(s) (ICD-10 - M79.675) 12/15/2024 Tinea unguium (ICD-10 - B35.1) 12/15/2024 Pain in left toe(s) (ICD-10 - M79.675) 12/15/2024 Type 2 diabetes mellitus without complication (ICD-10 - E11.9) Plan Of Treatment Pending Test Test Name Order Date [id number] NAIL, 6 OR MORE 12/15/2024 Next Appt Details Provider Name:Olga Delia escalona, 03/23/2025 11:15:00 AM, [address] [address], [place], [address], Insurance Providers Payer Name Payer Address Payer Phone Subscriber Number Group Number Insured Name Patient Relationship to Insured Coverage Start Date Coverage End Date Medicare National [facility] [address] [place] [address] [id number] Hien Mathur Self - patient is the insured 6 [employer] [facility] [address] [place] [address] [id number] Hien Mathur Self - patient is the insured Medical (General) History Medical History History ICD Code Anemia osteoarthritis Back,Hip,and Knee pain Chicken pox covid-19 Diabetes mellitus Diverticulosis Gall bladder problems 2 Leaky Heart valves High Blood Pressure Measles Mumps Surgical History Surgery Date(Month/Year) Gall bladder removal 2008
== END 2025-01-05 10:57 | disposition home or self-care (01) ==
LOC: HO.MAMMO 10:56
PROVIDERS: PCP Internal Medicine; Visit Provider Internal Medicine
DX: Z12.31 Encounter for screening mammogram for malignant neoplasm of breast (principal)
CPT/HCPCS: 77063; 77067

== ENCOUNTER → 2025-01-05 11:00 | Outpatient (BNV) | payer MEDICARE, SELFPAY | PROVIDERS: PCP Internal Medicine; Visit Provider Internal Medicine | DX: Z12.31 Encounter for screening mammogram for malignant neoplasm of breast (principal) | CPT/HCPCS: 77063; 77067 ==